=== PATIENT | female | born 1990 | race Caucasian/White ===

== ENCOUNTER 2016-12-20 09:35 | Day surgery (SDC) | payer BC ==
[~2016-12-20] VITALS: Ht 177.8 cm; Wt 74.9 kg
[~2016-12-20 09:35] MED LIST: LORTAB 5/500 501 TAB PO; NO HOME MEDICATIONS; TYLENOL #3 301 UDTAB PO
[2016-12-20 09:57] VITALS: BP 119/81; PULSE 87; TEMP 98.3
[2016-12-20] MEDS ORDERED: VALTREX 50500 MG/TAB PO (09:59)
[2016-12-20 11:10] VITALS: BP 104/53; PULSE 65; TEMP 97.7
[2016-12-20 11:25] VITALS: BP 107/53; PULSE 67; TEMP 97.6
[2016-12-20 11:40] VITALS: BP 97/57; PULSE 57; TEMP 97.7
[2016-12-20 11:55] VITALS: BP 95/59; PULSE 53; TEMP 97.6
[2016-12-20 12:25] VITALS: BP 92/53; PULSE 53; TEMP 97.6
== END 2016-12-20 12:50 | disposition home or self-care (01) ==
LOC: SDCO 09:35
DX: K51.90 Ulcerative colitis, unspecified, without complications (principal); K64.0 First degree hemorrhoids
CPT/HCPCS: OP; J2250; J2405; J3010